=== PATIENT | male | born 1965 | race Caucasian/White ===

== ENCOUNTER → 2016-09-01 | Outpatient (CLI) | payer BC ==
[~2016-09-01] MED LIST: ALBUAER2 INH; CETI10TA84 PO; GLC500 PO; OMEP20CA59 PO; PRAV40TA2 PO; SNG10 PO; TPRSR/25 PO
--- NOTE | 2016-09-01 09:15 | DIAGNOSTIC IMAGING REPORT ---
CHEST 2 VIEWS ROUTINE CLINICAL HISTORY: R00.2 [id number] Shortness of [id number] COMPARISON STUDY: January 14, 2012 FINDINGS: The cardiac and mediastinal contours are normal. There is no evidence of focal pulmonary consolidation. There is no evidence of failure. No pleural effusions are visualized.[ IMPRESSION: No active disease in the chest. Electronically signed by: Tam Shah M.D. 09/01/2016 9:13 AM Dictated Date/Time: 09/01/2016 9:13 AM
[2016-09-01 09:31] LABS: HEMATOCRIT 42.1 % (42-52); MEAN CELL VOLUME 91.3 fL (80-100); MEAN CORPUSCULAR HEMOGLOBIN 32.3 pg (25-34); MEAN CORPUSCULAR HGB CONC 35.4 g/dl (32-36); MEAN PLATELET VOLUME 10.5 fL (7.4-10.4); PLATELET COUNT 157 K/uL (130-400); RED BLOOD COUNT 4.61 M/uL (4.7-6.1); WHITE BLOOD COUNT 4.83 K/uL (4.8-10.8)
[2016-09-01 09:44] LABS: ESTIMATED AVERAGE GLUCOSE 103 mg/dl; HA1C FLAG Normal (Normal)
[2016-09-01 10:04] LABS: BLOOD UREA NITROGEN 12 mg/dl (7-18); BUN/CREATININE RATIO 13.6 (10-20); CALCIUM 9.2 mg/dl (8.5-10.1); CARBON DIOXIDE 28 mmol/L (21-32); CHLORIDE 106 mmol/L (98-107); GLUCOSE 94 mg/dl (70-99); MAGNESIUM 2.4 mg/dl (1.8-2.4); POTASSIUM 4.5 mmol/L (3.5-5.1); SODIUM 141 mmol/L (136-145)
== END | disposition home or self-care (01) ==
LOC: C.RAD1850 08:55
PROVIDERS: ATTEND Family Medicine
DX: R00.2 Palpitations (principal); R06.02 Shortness of breath

== ENCOUNTER → 2016-12-02 | Outpatient (CLI) | payer BC ==
[2016-12-02 12:51] LABS: ESTIMATED AVERAGE GLUCOSE 105 mg/dl; HA1C FLAG Normal (Normal)
[2016-12-02 12:59] LABS: ALT/SGPT 30 U/L (12-78); AST/SGOT 18 U/L (15-37); BLOOD UREA NITROGEN 17 mg/dl (7-18); BUN/CREATININE RATIO 19.2 (10-20); CARBON DIOXIDE 26 mmol/L (21-32); CHLORIDE 107 mmol/L (98-107); CHOLESTEROL 194 mg/dl (0-200); CREATININE 0.86 mg/dl (0.60-1.40); GLUCOSE 99 mg/dl (70-99); POTASSIUM 4.2 mmol/L (3.5-5.1); SODIUM 140 mmol/L (136-145); TRIGLYCERIDES 114 mg/dl (0-150); VERY LOW DENSITY LIPOPROT CALC 23 mg/dl
[2016-12-02 13:04] LABS: CALCIUM 9.4 mg/dl (8.5-10.1); CHOLESTEROL/HDL RATIO 3.3; HDL CHOLESTEROL 58 mg/dl; LDL CHOLESTEROL CALCULATED 113 mg/dl
== END | disposition home or self-care (01) ==
LOC: C.LAB1850 10:52
PROVIDERS: ATTEND Internal Medicine
DX: K76.0 Fatty (change of) liver, not elsewhere classified (principal); R73.03 Prediabetes; E78.5 Hyperlipidemia, unspecified

== ENCOUNTER → 2017-06-02 | Outpatient (CLI) | payer BC ==
[2017-06-02 10:25] LABS: ALT/SGPT 44 U/L (12-78); AST/SGOT 30 U/L (15-37); BLOOD UREA NITROGEN 9 mg/dl (7-18); BUN/CREATININE RATIO 11.7 (10-20); CALCIUM 8.8 mg/dl (8.5-10.1); CARBON DIOXIDE 25 mmol/L (21-32); CHLORIDE 108 mmol/L (98-107); CHOLESTEROL 191 mg/dl (0-200); CREATININE 0.77 mg/dl (0.60-1.40); GLUCOSE 100 mg/dl (70-99); POTASSIUM 4.3 mmol/L (3.5-5.1); SODIUM 139 mmol/L (136-145)
[2017-06-02 10:28] LABS: HDL CHOLESTEROL 64 mg/dl; LDL CHOLESTEROL CALCULATED 108 mg/dl; TRIGLYCERIDES 93 mg/dl (0-150); VERY LOW DENSITY LIPOPROT CALC 19 mg/dl
[2017-06-02 11:24] LABS: ESTIMATED AVERAGE GLUCOSE 103 mg/dl; HA1C FLAG Normal (Normal)
== END | disposition home or self-care (01) ==
LOC: C.LAB1850 09:16
PROVIDERS: ATTEND Internal Medicine
DX: R73.03 Prediabetes (principal); E78.5 Hyperlipidemia, unspecified

== ENCOUNTER → 2017-06-30 | Outpatient (CLI) | payer BC | END | disposition home or self-care (01) | LOC: C.LAB1850 09:15 | PROVIDERS: ATTEND Internal Medicine | DX: R41.840 Attention and concentration deficit (principal) ==

== ENCOUNTER → 2017-10-27 | Day surgery (SDC) | payer BC ==
[2017-10-10 09:52] VITALS: BMI 35.0
[~2017-10-27] VITALS: Ht 177.8 cm; Wt 110.0 kg
[~2017-10-27] MED LIST changes: -ALBUAER2 INH; +CHOL20007 PO; +CYAN500T PO; -GLC500 PO; +LIDOCAINE HCL 2% 2 ML VIAL (20MG/ML) ONE; +METF-384 PO; +MULT-506 PO; -OMEP20CA59 PO; +PROPOFOL IV EMULSION 10 MG/ML 20 ML VIAL IV ONE; +SODIUM CHLORIDE 0.9% 500ML 500 ML IV ONE; -TPRSR/25 PO; +TPRSR25 PO; +VNTHFA/IN INH
[2017-10-27 08:57] VITALS: Ht 177.8 cm; Wt 110.0 kg
--- NOTE | 2017-10-27 09:22 | Endo History and Physical ---
History & Physical Date of Service: Oct 27, 2017. Chief Complaint: SCREENING FOR COLON CANCER Referring Physician: DR ARREOLA History of Present Illness 52 yo CM who presents for screening colonoscopy. Past Surgical History Hx Cardiac Surgery: No Hx Internal Defibrillator: No Hx Pacemaker: No Hx Abdominal Surgery: No Hx of Implantable Prosthesis: No Hx Post-Op Nausea and Vomiting: No Hx Cancer Surgery: No Hx Thoracic Surgery: No Hx Orthopedic: No Hx Urinary Tract Surgery: Yes (URETHRAL STRICTURE REPAIR X3) Family History Polyp, IBD Social History Smoking Status: Never Smoker Hx Substance Use: No Hx Alcohol Use: Yes (OCCASIONAL) Allergies Coded Allergies: Epinephrine (Unverified Allergy, Unknown, INCREASED HEART OVER 200 BPM, ) Penicillins (Verified Allergy, Unknown, UNSURE OF REACTION, 10/10/17) Current Medications Reported Home Medications Medications Dose Route/Sig Max Daily Dose Days Date Category Multivitamin (Multivitamins) Tab 1 Tab PO DAILY 10/10/17 Reported Vitamin B-12 (Cyanocobalamin) 500 Mcg Tab 500 Mcg PO DAILY 10/10/17 Reported Vitamin D3 (Cholecalciferol) 2,000 Unit Tab 1 Tab PO DAILY 10/10/17 Reported Ventolin Hfa (Albuterol) 200 Puffs/01029 Mcg Aers 2-4 Puffs INH Q6H PRN 10/10/17 Reported Glucophage (Metformin Hcl) 1,000 Mg Tab 1,000 Mg PO BID 10/10/17 Reported Metoprolol Succinate ER (Metoprolol Succinate) 25 Mg Tabcr 1 Tab PO HS 10/10/17 Reported Montelukast Sodium (Montelukast Sod) 10 Mg Tab 10 Mg PO HS 04/25/15 Reported Pravastatin Sodium 40 Mg Tab 40 Mg PO HS 04/25/15 Reported Zyrtec (Cetirizine HCl) 10 Mg Tab 10 Mg PO HS 04/25/15 Reported Vital Signs Weight (Kilograms): 110.00 Height (Feet): 5 Height (Inches): 10 Date Time Temp Pulse Resp B/P (MAP) Pulse Ox O2 Delivery O2 Flow Rate FiO2 10/27/17 08:56 36.4 72 20 133/92 (106) 94 Room Air Physical Exam General Appearance: WD/WN, no apparent distress Respiratory/Chest: Auscultation: breath sounds normal Cardiovascular: Heart Auscultation: RRR Abdomen: Bowel Sounds: normal Inspection & Palpation: soft, non-distended, no tenderness, guarding & rebound Assessment and Plan Assessment: 52 yo CM who presents for screening colonoscopy. Plan: Proceed with colonoscopy.
--- NOTE | 2017-10-27 10:26 | Discharge Instructions ---
Endoscopy Patient Instructions Date / Procedure(s) Performed Oct 27, 2017. Colonoscopy Allergy Information Coded Allergies: Epinephrine (Unverified Allergy, Unknown, INCREASED HEART OVER 200 BPM, ) Penicillins (Verified Allergy, Unknown, UNSURE OF REACTION, 10/10/17) Discharge Date / Findings Oct 27, 2017. Colon polyps Internal hemorrhoids Medication Instructions Stopped Medication(s): GLUCOPHAGE LAST DOSE 10/24/17 OK to resume all medications today as prescribed Reported Home Medications Medications Dose Route/Sig Max Daily Dose Days Date Category Multivitamin (Multivitamins) Tab 1 Tab PO DAILY 10/10/17 Reported Vitamin B-12 (Cyanocobalamin) 500 Mcg Tab 500 Mcg PO DAILY 10/10/17 Reported Vitamin D3 (Cholecalciferol) 2,000 Unit Tab 1 Tab PO DAILY 10/10/17 Reported Ventolin Hfa (Albuterol) 200 Puffs/29628 Mcg Aers 2-4 Puffs INH Q6H PRN 10/10/17 Reported Glucophage (Metformin Hcl) 1,000 Mg Tab 1,000 Mg PO BID 10/10/17 Reported Metoprolol Succinate ER (Metoprolol Succinate) 25 Mg Tabcr 1 Tab PO HS 10/10/17 Reported Montelukast Sodium (Montelukast Sod) 10 Mg Tab 10 Mg PO HS 04/25/15 Reported Pravastatin Sodium 40 Mg Tab 40 Mg PO HS 04/25/15 Reported Zyrtec (Cetirizine HCl) 10 Mg Tab 10 Mg PO HS 04/25/15 Reported Provider Instructions Activity Restrictions - No exercising or heavy lifting for 24 hours. - Do not drink alcohol the day of the procedure. - Do not drive a car or operate machinery until the day after the procedure. - Do not make any important decisions or sign important papers in 24 hours after the procedure. Following Day: - Return to full activity which may include returning to work/school. Diet Start your diet with liquids and light foods (jello, soup, juice, toast). Then eat your usual diet if not nauseated. Treatment For Common After Affects For mild abdominal pain, bloating, or excessive gas: - Rest - Eat lightly - Lie on right side Follow-Up Information Follow-up with DR ARREOLA as scheduled Anesthesia Information What You Should Know You have had a procedure that required some medicine to reduce anxiety and discomfort. This treatment is called moderate sedation. After receiving the treatment, you may be sleepy, but you will be able to breathe on your own. The effects of the treatment may last for several hours. Follow these instructions along with Activity/Diet recommendations noted above: * Do NOT do anything where dizziness or clumsiness would be dangerous. * Rest quietly at home today, then you can be up and about tomorrow. * Have a responsible person stay with you the rest of today. * You may have had an I.V. today. If so, you may take the dressing off later today. Recommendations Call your doctor if: * Trouble breathing * Continuous vomiting for more than 24 hours * Temperature above 101 degrees * Severe abdominal pain or bloating * Pain not relieved by pain medicine ordered * There is increased drainage or redness from any incision * A large amount of rectal bleeding greater than 2-3 tablespoons. (If you had a polyp/s removed or have hemorrhoids, a small amount of blood - from the rectum is to be expected.) * You have any unanswered questions or concerns. IN THE EVENT OF A SERIOUS EMERGENCY, GO TO THE NEAREST EMERGENCY ROOM Your discharge instructions were prepared by provider Mendez Marcum. Patient Instructions Signature Page Danny Weems Patient (or Guardian) Signature/Date: I have read and understand the instructions given to me by my caregivers. Caregiver/RN/Doctor Signature/Date: The above-named patient and/or guardian has received patient instructions on this date. + Original Patient Signature Page (only) stays with chart. Please make copy for patient.
[2017-10-27 10:53] VITALS: BP 134/18; PULSE 64; O2SAT 97
--- NOTE | 2017-10-27 11:33 | Anesthesiology Progress Note ---
Anesthesia Post Op Note Date & Time Oct 27, 2017 at 11:33 Vital Signs Pain Intensity: 0 Vital Signs Past 12 Hours Date Time Temp Pulse Resp B/P (MAP) Pulse Ox O2 Delivery O2 Flow Rate FiO2 10/27/17 10:53 64 18 134/18 (56) 97 Room Air 10/27/17 10:38 77 18 136/72 (93) 96 Room Air 10/27/17 10:23 87 16 121/76 (91) 96 Room Air 10/27/17 08:56 36.4 72 20 133/92 (106) 94 Room Air Notes Mental Status: alert / awake / arousable, participated in evaluation Pt Amnestic to Procedure: Yes Nausea / Vomiting: adequately controlled Pain: adequately controlled Airway Patency, RR, SpO2: stable & adequate BP & HR: stable & adequate Hydration State: stable & adequate Anesthetic Complications: no major complications apparent
--- NOTE | 2017-10-31 08:48 | GI REPORT ---
Procedure Date: 10/27/2017 9:42 AM Procedure: Colonoscopy Indications: Screening for colorectal malignant neoplasm Medicines: Monitored Anesthesia Care Complications: No immediate complications. Estimated Blood Loss: Estimated blood loss: none. Procedure: Pre-Anesthesia Assessment: - Prior to the procedure, a History and Physical was performed, and patient medications and allergies were reviewed. The patient's tolerance of previous anesthesia was also reviewed. The risks and benefits of the procedure and the sedation options and risks were discussed with the patient. All questions were answered, and informed consent was obtained. Prior Anticoagulants: The patient has taken no previous anticoagulant or antiplatelet agents. ASA Grade Assessment: II - A patient with mild systemic disease. After reviewing the risks and benefits, the patient was deemed in satisfactory condition to undergo the procedure. After I obtained informed consent, the scope was passed under direct vision. Throughout the procedure, the patient's blood pressure, pulse, and oxygen saturations were monitored continuously. The scope was introduced through the anus and advanced to the terminal ileum. The colonoscopy was performed without difficulty. The patient tolerated the procedure well. The quality of the bowel preparation was good. The terminal ileum, ileocecal valve, appendiceal orifice, and rectum were photographed. Findings: The perianal and digital rectal examinations were normal. Two sessile polyps were found in the sigmoid colon and ascending colon. The polyps were 5 to 8 mm in size. These polyps were removed with a hot snare. Resection and retrieval were complete. Non-bleeding internal hemorrhoids were found during retroflexion. The hemorrhoids were small. Impression: - Two 5 to 8 mm polyps in the sigmoid colon and in the ascending colon, removed with a hot snare. Resected and retrieved. - Non-bleeding internal hemorrhoids. Recommendation: - Resume previous diet. - Continue present medications. - Repeat colonoscopy for surveillance based on pathology results. - Return to primary care physician as previously scheduled. Mendez Marcum DO 10/27/2017 10:34:06 AM This report has been signed electronically. Note Initiated On: 10/27/2017 9:42 AM I attest to the content of the Intraoperative Record and orders documented therein, exceptions below
== END | disposition home or self-care (01) ==
LOC: C.GI 08:40
PROVIDERS: ATTEND Internal Medicine
DX: Z12.11 Encounter for screening for malignant neoplasm of colon (principal); D12.2 Benign neoplasm of ascending colon; D12.5 Benign neoplasm of sigmoid colon; K64.8 Other hemorrhoids; J45.909 Unspecified asthma, uncomplicated; G47.33 Obstructive sleep apnea (adult) (pediatric); E66.9 Obesity, unspecified; Z68.35 Body mass index [BMI] 35.0-35.9, adult; Z99.89 Dependence on other enabling machines and devices; Z88.0 Allergy status to penicillin

== ENCOUNTER 2022-06-27 11:09 | Inpatient (IN) ==
[2022-06-27] MEDS ORDERED: ONDANSETRON INJ 2 MG/ML 2 ML VIAL IV STA (12:19)
[2022-06-27] MEDS ORDERED: SODIUM CHLORIDE 0.9% 1000ML 1,000 ML IV STA (12:19)
[2022-06-27] MEDS: MoRPHine SULFATE 4 MG/ML 1 ML CARP\\VIAL IV PRN ×5 (12:24→15:23)
--- NOTE | 2022-06-27 12:25 | Emergency Department Note ---
Impression & Plan Hydronephrosis with ureteral calculus, Renal colic on right side ED Provider Note NAME: PAGE COLÓN AGE: 56 SEX: M : 1965 ARRIVES VIA: Walk-In INFORMANT: Patient, ED PROVIDER(S): Cheng Cronin DO CHIEF COMPLAINT: Flank pain HPI: The patient is a 56-year-old male who presented to the emergency department for an evaluation of flank pain. The patient describes right-sided flank pain which began earlier today. It now comes around to his right groin. He has no history of kidney stone but he states he is very uncomfortable and is walking around the room. The patient states his pain is moderate to severe. It does somewhat worsen with palpation over the lower abdomen as well as the right groin. He denies having any hernia. He did not see his family doctor for any symptoms. He has had severe nausea accompanied with this. The patient denies having any chest pain or difficulty breathing. He did not take any medication prior to coming to the emergency department. ROS: See above HPI for pertinent positives & negatives. A total of 10 systems reviewed and were otherwise negative. PAST MEDICAL HISTORY: See Below PAST SURGICAL HISTORY: See Below FAMILY HISTORY: See Below SOCIAL HISTORY: See Below HOME MEDICATIONS: See Below ALLERGIES: See Below VITALS: See Below PHYSICAL EXAMINATION: GENERAL: The patient is awake and alert. The patient is very anxious and appears to be uncomfortable. EYES: The conjunctivae are clear. The pupils are round and reactive. EARS, NOSE, MOUTH AND THROAT: The nose is without any evidence of any deformity. NECK: The neck is nontender and supple. RESPIRATORY: Normal respiratory effort is noted there is no evidence of wheezing rhonchi or rales CARDIOVASCULAR: Regular rate and rhythm noted there no murmurs rubs or gallops normal S1 normal S2. GASTROINTESTINAL: The abdomen is soft. The abdomen is mildly distended. There is right lower quadrant tenderness to palpation. BACK: No midline tenderness was noted. Right CVA tenderness was noted to percussion. MUSCULOSKELETAL/EXTREMITIES: There is no evidence of gross deformity full range of motion is noted in the hips and shoulders. SKIN: There is no obvious evidence of any rash. There are no petechiae, pallor or cyanosis noted. NEUROLOGIC: Patient is awake alert and oriented x3 strength is symmetric patellar reflexes are 2+ bilaterally MEDICAL DECISION MAKING: The patient is a 56-year-old male who presented to the emergency department for an evaluation of right renal colic. The patient was in significant pain when I initially evaluated him. His history and physical exam appear to be consistent with ureteral calculus and CT did show a proximal ureteral calculus. Given the amount of pain the patient was in especially after multiple doses of IV pain medication I discussed his condition with the on-call [facility] hospitalist. They have agreed to evaluate the patient in the emergency department for further management and disposition. I did discuss the patient's laboratory and radiographic studies with him. Triage Nursing notes reviewed. Prior medical records reviewed Vital Signs: reviewed and remarkable for elevated blood pressure and bradycardia. Differential diagnosis: Renal colic, UTI, appendicitis, diverticulitis, mesenteric ischemia, aortic pathology, infections, inflammatory bowel disease, PUD, biliary pathology, as well as other pathologies. ER treatment provided: See below Diagnostics interpreted by me: ECG: none Cardiac Monitoring: An order was placed for continuous cardiac monitoring. The monitor shows a rate of 54 bpm with sinus bradycardia. Laboratory studies: As stated above and show below. Imaging studies: See below Consultation(s): none Past Med/Surg History Medical History (Updated 06/27/22 @ 19:20 by Cheng Cronin DO) Dyslipidemia Prediabetes Tubular adenoma of colon Surgical History History of uvulectomy S/P cystoscopy Family History Father Prostate cancer Acute Crohn's disease Crohn's disease Son Asthma Mother Bipolar disorder Grandfather (Maternal) Coronary heart disease Grandmother (Maternal) Pancreatic cancer Denies family history of Ovarian cancer Myocardial infarction Breast cancer Colorectal cancer Social History Smoking Status: Never smoker Hx Alcohol Use: Yes Hx Substance Use: No Preferred Language: Cameroonian Visual Impairment: No Limitations Hearing Ability: Normal marital status: Current Living Situation: Spouse current occupational status: employed current occupation: police lieutenant Feels Safe at Home: Yes Childhood Exposure to Second-Hand Smoke: No Dental Care, Regularly: Yes Physical Activity Frequency: 3-4 Times per Week Seatbelt Use: always Sunscreen Use: Yes Allergies Allergies Allergy/AdvReac Type Severity Reaction Status Date / Time epinephrine Allergy Unknown INCREASED Verified 06/27/22 15:52 HEART OVER 200 BPM Penicillins Allergy Unknown UNSURE OF Verified 06/27/22 15:52 REACTION Home Meds Previous Rx's Medication Instructions Recorded albuterol sulfate 90 mcg/actuation See Rx Instructions inhalation QID 05/14/21 aerosol inhaler (Ventolin HFA) PRN shortness of breath or wheezing #8.5 grams pravastatin 40 mg tablet 40 mg PO DAILY #90 tabs 09/27/21 metformin 1,000 mg tablet 1,000 mg PO BID #180 tabs 11/01/21 metoprolol succinate 25 mg 25 mg PO DAILY #90 tabs 11/01/21 tablet,extended release 24 hr montelukast 10 mg tablet 10 mg PO QPM #90 tabs 11/01/21 Results & Data (ED) Vital Signs Vital Signs - 24 hr 06/27/22 11:14 06/27/22 12:44 06/27/22 12:46 Temperature 36.8 C Temperature Source Temporal Artery Scan Pulse Rate 61 Pulse Rate [Finger] 61 Pulse Rhythm [Finger] Respiratory Rate 30 H 18 Respiratory Effort / Characteristics Non-Labored Spontaneous Respiratory Depth Normal Respiratory Pattern Regular Blood Pressure 161/81 H Blood Pressure [Left Arm] 154/84 H Blood Pressure Mean 107 Blood Pressure Mean [Left Arm] 107 Blood Pressure Position Sitting Pulse Oximetry 95 97 97 Oxygen Delivery Method Room Air Room Air Sepsis Recent Fever Within 48 Hours No Sepsis New/Unexplained Change in Mental Status No Sepsis Action Taken by Nursing No Action Required 06/27/22 13:31 06/27/22 15:39 06/27/22 17:54 Temperature Temperature Source Pulse Rate Pulse Rate [Finger] 49 L 50 L 54 L Pulse Rhythm [Finger] Regular Respiratory Rate 18 18 18 Respiratory Effort / Characteristics Respiratory Depth Respiratory Pattern Blood Pressure Blood Pressure [Left Arm] 147/87 H Blood Pressure Mean Blood Pressure Mean [Left Arm] 107 Blood Pressure Position Pulse Oximetry 98 92 96 Oxygen Delivery Method Room Air Room Air Room Air Sepsis Recent Fever Within 48 Hours Sepsis New/Unexplained Change in Mental Status Sepsis Action Taken by Assisted Medications Current Medication List: was personally reviewed by me Laboratory Data Attestation: I reviewed the patient's lab results. Result diagrams: 06/27/22 11:20 06/27/22 11:20 Lab Results 11/06/27/22 06/27/22 Range/Units 11:20 11:20 15:10 WBC 6.86 (4.8-10.8) K/ul RBC 4.60 L (4.63-6.08) M/uL Hgb 14.6 (14.0-18.0) g/dl Hct 42.4 (40.1-51.0) % MCV 92.2 (80.0-100.0) fL MCH 31.7 (25.0-34.0) pg MCHC 34.4 (32.0-36.0) g/dL RDW Std Deviation 42.5 (36.4-46.3) fL RDW Coeff of Ramona 12.6 (11.5-14.5) % Plt Count 193 (130-400) K/uL MPV 10.9 (9.4-12.4) fL Immature Gran % (Auto) 0.4 % Neut % (Auto) 44.0 % Lymph % (Auto) 36.7 % Martin % (Auto) 12.8 % Eos % (Auto) 5.1 % Baso % (Auto) 1.0 % Neut # (Auto) 3.01 (1.4-6.5) K/uL Lymph # (Auto) 2.52 (1.2-3.4) K/uL Martin # (Auto) 0.88 H (0.24-0.82) K/uL Eos # (Auto) 0.35 (0-0.50) K/uL Baso # (Auto) 0.07 (0-0.2) K/uL Immature Gran # (Auto) 0.03 H (0.00-0.02) K/uL Sodium 138 (136-145) mmol/L Potassium 3.8 (3.5-5.1) mmol/L Chloride 108 H (98-107) mmol/L Carbon Dioxide 20 L (21-32) mmol/L Anion Gap 10 (3-11) BUN 12 (6-23) mg/dl Creatinine 0.99 (0.6-1.4) mg/dl Est Cr Clr Drug Dosing 106.5 ml/min Est GFR ( Amer) 99.7 ml/min Est GFR (Non-Af Amer) 86.0 ml/min BUN/Creatinine Ratio 12.1 (10-20) Glucose 115 H (70-99(Fasting)) mg/dl Calcium 9.2 (8.5-10.1) mg/dl Total Bilirubin 0.6 (0.2-1.0) mg/dl AST 16 (13-39) U/L ALT 15 (7-52) U/L Alkaline Phosphatase 53 (34-104) U/L Total Protein 6.7 (6.0-8.3) gm/dl Albumin 4.2 (3.4-5.0) gm/dl Globulin 2.5 (2.5-4.0) gm/dl Albumin/Globulin Ratio 1.7 (0.9-2) Lipase 141 H (11-82) U/L Urine Color Yellow Urine Appearance Clear (Clear) Urine pH 5.0 (4.5-7.5) Ur Specific [place] 1.020 (1.000-1.030) Urine Protein Negative (Negative) Urine Glucose (UA) Negative (Negative) Urine Ketones Trace H (Negative) Urine Blood 3+ H (Negative) Urine Nitrite Negative (Negative) Urine Bilirubin Negative (Negative) Urine Urobilinogen Negative (Negative) Ur Leukocyte Esterase Negative (Negative) Urine WBC (Auto) 1-5 (0-5) /hpf Urine RBC (Auto) 10-30 H (0-4) /hpf U Hyaline Cast (Auto) 1-5 (0-5) /lpf U Epithel Cells (Auto) 10-20 H (0-5) /lpf Urine Bacteria (Auto) Negative (Negative) SARS-CoV-2, RNA, NAAT (NEGATIVE) 06/27/22 Range/Units Unknown WBC (4.8-10.8) K/ul RBC (4.63-6.08) M/uL Hgb (14.0-18.0) g/dl Hct (40.1-51.0) % MCV (80.0-100.0) fL MCH (25.0-34.0) pg MCHC (32.0-36.0) g/dL RDW Std Deviation (36.4-46.3) fL RDW Coeff of Ramona (11.5-14.5) % Plt Count (130-400) K/uL MPV (9.4-12.4) fL Immature Gran % (Auto) % Neut % (Auto) % Lymph % (Auto) % Martin % (Auto) % Eos % (Auto) % Baso % (Auto) % Neut # (Auto) (1.4-6.5) K/uL Lymph # (Auto) (1.2-3.4) K/uL Martin # (Auto) (0.24-0.82) K/uL Eos # (Auto) (0-0.50) K/uL Baso # (Auto) (0-0.2) K/uL Immature Gran # (Auto) (0.00-0.02) K/uL Sodium (136-145) mmol/L Potassium (3.5-5.1) mmol/L Chloride (98-107) mmol/L Carbon Dioxide (21-32) mmol/L Anion Gap (3-11) BUN (6-23) mg/dl Creatinine (0.6-1.4) mg/dl Est Cr Clr Drug Dosing ml/min Est GFR ( Amer) ml/min Est GFR (Non-Af Amer) ml/min BUN/Creatinine Ratio (10-20) Glucose (70-99(Fasting)) mg/dl Calcium (8.5-10.1) mg/dl Total Bilirubin (0.2-1.0) mg/dl AST (13-39) U/L ALT (7-52) U/L Alkaline Phosphatase (34-104) U/L Total Protein (6.0-8.3) gm/dl Albumin (3.4-5.0) gm/dl Globulin (2.5-4.0) gm/dl Albumin/Globulin Ratio (0.9-2) Lipase (11-82) U/L Urine Color Urine Appearance (Clear) Urine pH (4.5-7.5) Ur Specific [place] (1.000-1.030) Urine Protein (Negative) Urine Glucose (UA) (Negative) Urine Ketones (Negative) Urine Blood (Negative) Urine Nitrite (Negative) Urine Bilirubin (Negative) Urine Urobilinogen (Negative) Ur Leukocyte Esterase (Negative) Urine WBC (Auto) (0-5) /hpf Urine RBC (Auto) (0-4) /hpf U Hyaline Cast (Auto) (0-5) /lpf U Epithel Cells (Auto) (0-5) /lpf Urine Bacteria (Auto) (Negative) SARS-CoV-2, RNA, NAAT NEGATIVE (NEGATIVE) Administered Medications Morphine Sulfate (Morphine Sulfate 4 Mg/Ml 1 Ml Carp\Vial) 4 mg IV Q15M PRN PRN Reason: Pain Stop: 07/11/22 12:18 Last Admin: 06/27/22 15:23 Dose: 4 mg Documented By: Admin: 06/27/22 13:29 Dose: 4 mg Documented By: Admin: 06/27/22 12:55 Dose: 4 mg Documented By: Admin: 06/27/22 12:43 Dose: 4 mg Documented By: Admin: 06/27/22 12:24 Dose: 4 mg Documented By: PALMA Discontinued Medications Hydromorphone HCl (Hydromorphone Inj 1 Mg/Ml Syringe) 1 mg IV NOW STA Stop: 06/27/22 16:09 Last Admin: 06/27/22 16:18 Dose: 1 mg Documented By: LALA Sodium Chloride (Nss 1000ml) 1,000 mls @ 999 mls/hr IV .Q1H1M STA Stop: 06/27/22 13:19 Last Infusion: 06/27/22 13:05 Dose: 0 mls/hr Documented By: Admin: 06/27/22 12:24 Dose: 999 mls/hr Documented By: PALMA Ketorolac Tromethamine (Ketorolac Tromethamine 15 Mg/Ml Vial) 10 mg IV NOW ONE Stop: 06/27/22 16:53 Last Admin: 06/27/22 17:06 Dose: 10 mg Documented By: LALA Ondansetron HCl (Ondansetron Inj 2 Mg/Ml 2 Ml Vial) 4 mg IV NOW STA Stop: 06/27/22 12:20 Last Admin: 06/27/22 12:24 Dose: 4 mg Documented By: PALMA Ondansetron HCl (Ondansetron Inj 2 Mg/Ml 2 Ml Vial) Confirm Administered Dose 4 mg .ROUTE .STK-MED ONE Stop: 06/27/22 15:21 Last Admin: 06/27/22 15:22 Dose: 4 mg Documented By: LALA Tamsulosin HCl (Tamsulosin Hcl 0.4 Mg Cap) 0.4 mg PO NOW ONE Stop: 06/27/22 16:53 Last Admin: 06/27/22 17:06 Dose: 0.4 mg Documented By: KV Imaging Data Radiologist's Impression: Abdomen/Pelvis CT 06/27/22 12:[address] WITHOUT CONTRAST CT DOSE: 723.91 mGy.cm HISTORY: right flank pain TECHNIQUE: Multiaxial CT images of the abdomen and pelvis were performed without contrast. A dose lowering technique was utilized adhering to the principles of ALARA. COMPARISON STUDY: None. FINDINGS: Mild dependent changes seen within the lung bases. No pneumoperitoneum. No pneumatosis. No suspicious lytic or blastic osseous lesions. Small bilateral hydroceles are noted. Mild bladder wall thickening. No bowel wall thickening or obstruction. Normal appendix. No retroperitoneal lymphadenopathy. Normal caliber abdominal aorta. Mild hepatic steatosis. The unenhanced gallbladder, pancreas, spleen, and adrenal glands are unremarkable. Normal left kidney. There is a 4 mm obstructing stone within the right ureteropelvic junction resulting in mild right hydronephrosis. There is associated mild right perinephric fat stranding. IMPRESSION: 1. A 4 mm obstructing stone within the right ureteropelvic junction resulting in mild right hydronephrosis. 2. No bowel wall thickening or obstruction. 3. Normal appendix. 4. Hepatic steatosis. 5. Mild bladder wall thickening. ACT 112: Negative or not required by law. Electronically signed by: Joel Osorio M.D. 06/27/2022 1:24 PM Discharge Plan Visit Data Chief Complaint: Flank Pain Stated Complaint: R FLANK PAIN ED Provider: Cheng Cronin Discharge Problem: Hydronephrosis with ureteral calculus, Renal colic on right side Patient Disposition: Being Evaluated by Hospitalist Forms Stand Alone Forms: My [facility] Prescriptions Prescriptions: No Action pravastatin 40 mg tablet 40 mg PO DAILY Qty: 90 3RF metoprolol succinate 25 mg tablet extended release 24 hr 25 mg PO DAILY Qty: 90 3RF montelukast 10 mg tablet 10 mg PO QPM Qty: 90 3RF metformin 1,000 mg tablet 1,000 mg PO BID Qty: 180 3RF albuterol sulfate [Ventolin HFA] 90 mcg/actuation HFA aerosol inhaler See Rx Instructions inhalation QID PRN (Reason: shortness of breath or wheezing) Qty: 8.5 2RF Rx Instructions: 1-2 puffs every 4-5 hours inhalation four times daily PRN; Referrals Referrals: Pro,Cheng Norton MD [Primary Care Provider] -
--- NOTE | 2022-06-27 13:25 | CT Scan Report ---
ABDOMEN AND PELVIS CT WITHOUT CONTRAST CT DOSE: 723.91 mGy.cm HISTORY: right flank pain TECHNIQUE: Multiaxial CT images of the abdomen and pelvis were performed without contrast. A dose lo wering technique was utilized adhering to the principles of ALARA. COMPARISON STUDY: None. FINDINGS: Mild dependent changes seen within the lung bases. No pneumoperitoneum. No pneumatosis. No suspicious lytic or blastic osseous lesions. Small bilateral hydroceles are noted. Mild bladder wall thickening. No bowel wall thickening or obstruction. Normal appendix. No retroperitoneal lymphadenopa thy. Normal caliber abdominal aorta. Mild hepatic steatosis. The unenhanced gallbladder, pancreas, sp anne, and adrenal glands are unremarkable. Normal left kidney. There is a 4 mm obstructing stone with in the right ureteropelvic junction resulting in mild right hydronephrosis. There is associated mild right perinephric fat stranding. IMPRESSION: 1. A 4 mm obstructing stone within the right ureteropelvic junction resulting in mild right hydroneph rosis. 2. No bowel wall thickening or obstruction. 3. Normal appendix. 4. Hepatic steatosis. 5. Mild bladder wall thickening. ACT 112: Negative or not required by law. Electronically signed by: Joel Osorio M.D. 06/27/2022 1:24 PM
[2022-06-27 14:56] LABS: Basophils # (auto) 0.07 K/uL (0-0.2); Eosinophils # (auto) 0.35 K/uL (0-0.50); Eosinophils % (auto) 5.1 %; Hematocrit (blood only) 42.4 % (40.1-51.0); Hemoglobin 14.6 g/dl (14.0-18.0); Immature Granulocytes # (auto) 0.03 K/uL (0.00-0.02); Immature Granulocytes % (auto) 0.4 %; Lymphocytes # (auto) 2.52 K/uL (1.2-3.4); Lymphocytes % (auto) 36.7 %; Mean Corpuscular Hemoglobin 31.7 pg (25.0-34.0); Mean Corpuscular Hgb Conc 34.4 g/dL (32.0-36.0); Mean Corpuscular Volume 92.2 fL (80.0-100.0); Mean Platelet Volume 10.9 fL (9.4-12.4); Monocytes # (auto) 0.88 K/uL (0.24-0.82); Monocytes % (auto) 12.8 %; Neutrophils # (auto) 3.01 K/uL (1.4-6.5); Platelet Count 193 K/uL (130-400); RDW Coefficient of Variation 12.6 % (11.5-14.5); RDW Standard Deviation 42.5 fL (36.4-46.3); White Blood Count 6.86 K/ul (4.8-10.8)
[2022-06-27 15:10] LABS: Albumin Globulin Ratio 1.7 (0.9-2); Albumin Level 4.2 gm/dl (3.4-5.0); BUN Creatinine Ratio 12.1 (10-20); Bilirubin,Total 0.6 mg/dl (0.2-1.0); Calcium 9.2 mg/dl (8.5-10.1); Creatinine Clr Calc Pharmacy 106.5 ml/min; Est GFR (African American) 99.7 ml/min; Globulin 2.5 gm/dl (2.5-4.0); Potassium 3.8 mmol/L (3.5-5.1); Total Protein 6.7 gm/dl (6.0-8.3)
[2022-06-27] MEDS ORDERED: ONDANSETRON INJ 2 MG/ML 2 ML VIAL ONE (15:20)
[2022-06-27 15:38] LABS: Appearance Urine Clear (Clear); Bacteria Urine Automated Negative (Negative); Bilirubin Urine Negative (Negative); Blood Urine 3+ (Negative); Color Urine Yellow; Glucose Urine UA Negative (Negative); Ketones Urine Trace (Negative); Leukocyte Esterase Urine Negative (Negative); Nitrite Urine Negative (Negative); Protein Urine Negative (Negative); Urobilinogen Urine Negative (Negative)
[2022-06-27] MEDS ORDERED: HYDROmorphone INJ 1 MG/ML SYRINGE IV STA (16:08)
--- NOTE | 2022-06-27 16:37 | History & Physical Report ---
Date of Service June 27, 2022 Assessment & Plan (1) Obstruction of right ureteropelvic junction (UPJ): Plan: R UPJ Stone - CT-A/P:1. A 4 mm obstructing stone within the right ureteropelvic junction resulting in mild right hydronephrosis. 2. No bowel wall thickening or obstruction. 3. Normal appendix. 4. Hepatic steatosis.5. Mild bladder wall thickening. - Cr normal at bl, <1 on admit - 4mm stone with hydro Patient has not passed stone and had an adequate pain control with expulsive/medical therapy and pain control. Discussed with urology, not able cystoscopy/stents placed and discharged from ER at this time, will admit for observation - APAP/toradol 10/scaled analgesia/flomax - NPO - Fluids - Urology consulted. Of note patient has had urethral stricture with difficult catheterization in the past (2) Obstructive sleep apnea: Plan: CPAP nightly (3) Dyslipidemia: Plan: Continue pravastatin (4) Prediabetes: Plan: Insulin SSI, hold metformin (5) Asthma: Plan: Continue montelukast, albuterol as needed, no wheezing on admission (6) Esophageal reflux: Plan: H2 as needed Plan DVT prophylaxis: Low risk, SCDs Diet: N.p.o. pending surgical eval, clears until midnight if OR unavailable CODE STATUS: Full code Disposition: Medical surgical History of Present Illness Primary Care Provider: Cheng Tracy MD Danny is a 56-year-old male with a past medical history of dyslipidemia, prediabetes, asthma, reflux who presents with intractable pain and is found to haveA 4 mm obstructing stone at the right UPJ with mild right hydro. Pain was not improved with saline, Zofran, morphine, hydromorphone, and has not improved with Flomax. Patient was recommended for admission for pain control, urologic intervention, and management of hydro. Creatinine is not elevated, admitting creatinine is 0.99 and baseline creatinine is normal. R flank pain started ~9am, then jumped to 10/10 and moved from R flank into the R low pelvis. No fevers, chills, sweats +diaphoresis, +Vomiting from pain, nonbloody/nonbilious emesis No chest pain. no sob, no breathing problems NO blood in urine to his knowledge. Has some dysuria at baseline due to a high s chool traumatic stricture x4 interventions/surgeries for scar tissue 2x performed in [place] in the , and 2x with [facility]. Medical History: Reviewed Medications: Reviewed Surgical History: Reviewed Allergies: Reviewed. PCN childhood w/ hallucinations no rash. Social History: No tobacco product use, rare social alcohol use, no MM. Code Status: Full Code Allergies Allergy/AdvReac Type Severity Reaction Status Date / Time epinephrine Allergy Unknown INCREASED Verified 06/27/22 15:52 HEART OVER 200 BPM Penicillins Allergy Unknown UNSURE OF Verified 06/27/22 15:52 REACTION Home Medications Medication Instructions Recorded Confirmed Type albuterol sulfate 90 mcg/actuation See Rx Instructions inhalation QID 05/14/21 06/27/22 Rx aerosol inhaler (Ventolin HFA) PRN shortness of breath or wheezing #8.5 grams pravastatin 40 mg tablet 40 mg PO DAILY #90 tabs 09/27/21 06/27/22 Rx metformin 1,000 mg tablet 1,000 mg PO BID #180 tabs 11/01/21 06/27/22 Rx metoprolol succinate 25 mg 25 mg PO DAILY #90 tabs 11/01/21 06/27/22 Rx tablet,extended release 24 hr montelukast 10 mg tablet 10 mg PO QPM #90 tabs 11/01/21 06/27/22 Rx Past Med/Surg History Medical History Dyslipidemia Prediabetes Tubular adenoma of colon Surgical History History of uvulectomy S/P cystoscopy Family History Father Prostate cancer Acute Crohn's disease Crohn's disease Son Asthma Mother Bipolar disorder Grandfather (Maternal) Coronary heart disease Grandmother (Maternal) Pancreatic cancer Denies family history of Ovarian cancer Myocardial infarction Breast cancer Colorectal cancer Social History Smoking Status: Never smoker Hx Alcohol Use: Yes Hx Substance Use: No Preferred Language: Vietnamese Visual Impairment: No Limitations Hearing Ability: Normal marital status: Current Living Situation: Spouse current occupational status: employed current occupation: policeman Feels Safe at Home: Yes Childhood Exposure to Second-Hand Smoke: No Dental Care, Regularly: Yes Physical Activity Frequency: 3-4 Times per Week Seatbelt Use: always Sunscreen Use: Yes Review of Systems Review of Systems: All systems reviewed & are unremarkable except as noted in HPI & below Physical Exam Physical Exam: General: A&Ox3. NAD. Cooperative. HEENT: Atraumatic, normocephalic. Pulm: CTAB A&P. -wheezes, -rales, -rhonchi. Symmetrical chest rise. No increased work of breathing. No respiratory distress. Cardiac: RRR, -mrg. Radial pulses intact and symmetrical. Abdominal: +CVA tenderness R, Mild RLQ ab pain without rebound. Otherwise soft, NT. BS intact Ext; Warm, dry. Results & Data Results & Data ([facility]) Vital Signs (Past 12 Hours) Vital Signs Temp Pulse Pulse Resp BP BP Pulse Ox 06/27/22 15:39 50 L 18 92 06/27/22 13:31 49 L 18 147/87 H 98 06/27/22 12:46 97 06/27/22 12:44 61 18 154/84 H 97 06/27/22 11:14 36.8 C 61 30 H 161/81 H 95 O2 Del Method 06/27/22 15:39 Room Air 06/27/22 13:31 Room Air 06/27/22 12:46 06/27/22 12:44 Room Air 06/27/22 11:14 Room Air PG Care Time/CCT Total # of Minutes Spent Total Time Spent with Patient: Total time spent is greater than 50% in coordination of care (as documented) at patient's floor/unit and/or counseling patient: Coding Level of Care Code INT OBSERVATION CARE 50M LVL 2 Diagnoses Obstruction of right ureteropelvic junction (UPJ) N13.5 Obstructive sleep apnea G47.33 Dyslipidemia E78.5 Prediabetes R73.03 Asthma J45.909 Esophageal reflux K21.9
[2022-06-27] MEDS ORDERED: KETOROLAC TROMETHAMINE 15 MG/ML VIAL IV ONE (16:52)
[2022-06-27] MEDS ORDERED: TAMSULOSIN HCL 0.4 MG CAP PO ONE ×2 (16:52→21:15)
[2022-06-27] MEDS ORDERED: ALBUTEROL HFA 8 GM INHALER INH PRN (21:15)
[2022-06-27] MEDS ORDERED: GLUCOSE 10 TAB/TUBE PO PRN (21:15)
[2022-06-27] MEDS ORDERED: INSULIN ASPART PER UNIT SC SCH (21:15)
[2022-06-27] MEDS ORDERED: GLUCAGON FOR INJ 1 MG VIAL SQ PRN (21:15)
[2022-06-27] MEDS ORDERED: HYDROmorphone INJ 1 MG/ML SYRINGE IV PRN (21:15)
[2022-06-27] MEDS ORDERED: ONDANSETRON INJ 2 MG/ML 2 ML VIAL IV PRN (21:15)
[2022-06-27] MEDS ORDERED: GLUCOSE 40% GEL 15 GM TUBE PO PRN (21:15)
[2022-06-27] MEDS ORDERED: CARBOHYDRATES FOR HYPOGLYCEMIA PO PRN (21:15)
[2022-06-27] MEDS ORDERED: ACETAMINOPHEN 325 MG TAB PO PRN (21:15)
[2022-06-27] MEDS ORDERED: MONTELUKAST SODIUM 10 MG TABLET PO SCH (21:15)
[2022-06-27] MEDS ORDERED: HYDROmorphone INJ 0.5 MG/0.5 ML SYR IV PRN (21:15)
[2022-06-27] MEDS ORDERED: DEXTROSE 50% 50 ML SYRINGE IV PRN (21:15)
[2022-06-27] MEDS: LACTATED RINGER'S 1,000 ML IV SCH (21:38)
[2022-06-27] MEDS ORDERED: PNEUMOCOCCAL POLYSACCHARIDES 25 MCG/0.5 ML VIAL/SYR IM ONE (22:34)
[2022-06-28] MEDS: LACTATED RINGER'S 1,000 ML IV SCH (05:20)
[2022-06-28 05:47] LABS: Appearance Urine Clear (Clear); Bacteria Urine Automated Negative (Negative); Bilirubin Urine Negative (Negative); Blood Urine 3+ (Negative); Color Urine Yellow; Glucose Urine UA Negative (Negative); Ketones Urine Negative (Negative); Leukocyte Esterase Urine Negative (Negative); Nitrite Urine Negative (Negative); Protein Urine Negative (Negative); Specific Gravity Urine 1.017 (1.000-1.030); Urobilinogen Urine Negative (Negative); pH Urine 5.5 (4.5-7.5)
[2022-06-28] MEDS ORDERED: INSULIN ASPART PER UNIT SC SCH (06:00)
[2022-06-28 07:21] LABS: Hematocrit (blood only) 38.8 % (40.1-51.0); Hemoglobin 13.4 g/dl (14.0-18.0); Mean Corpuscular Hemoglobin 31.9 pg (25.0-34.0); Mean Corpuscular Hgb Conc 34.5 g/dL (32.0-36.0); Mean Corpuscular Volume 92.4 fL (80.0-100.0); Mean Platelet Volume 10.2 fL (9.4-12.4); Platelet Count 123 K/uL (130-400); RDW Standard Deviation 43.9 fL (36.4-46.3); White Blood Count 7.37 K/ul (4.8-10.8)
[2022-06-28 07:26] LABS: BUN Creatinine Ratio 14.6 (10-20); C Reactive Protein 1.74 mg/dl (0-0.5); Calcium 8.3 mg/dl (8.5-10.1); Creatinine Clr Calc Pharmacy 101.2 ml/min; Potassium 3.5 mmol/L (3.5-5.1)
[2022-06-28 07:29] LABS: Basophils # (auto) 0.03 K/uL (0-0.2); Basophils % (auto) 0.4 %; Eosinophils # (auto) 0.07 K/uL (0-0.50); Eosinophils % (auto) 0.9 %; Immature Granulocytes # (auto) 0.02 K/uL (0.00-0.02); Immature Granulocytes % (auto) 0.3 %; Lymphocytes # (auto) 1.47 K/uL (1.2-3.4); Lymphocytes % (auto) 19.9 %; Monocytes % (auto) 9.5 %; Neutrophils # (auto) 5.08 K/uL (1.4-6.5)
--- NOTE | 2022-06-28 08:42 | Urology Consultation ---
Date of Consultation June 28, 2022 Assessment & Plan (1) Hydronephrosis with ureteral calculus: (2) Renal colic on right side: (3) Obstruction of right ureteropelvic junction (UPJ): Plan 56yo M admitted with intractable right flank pain secondary to a 4 mm right UPJ stone causing mild hydronephrosis. -Afebrile and hemodynamically stable. -No leukocytosis and normal renal function. -Urinalysis not indicative of infection. -Patient passed his stone this morning and is currently asymptomatic, therefore no urological intervention indicated. -Ok for discharge from perspective. -We discussed worrisome signs/symptoms. -Basic stone prevention also reviewed. -We will arrange outpatient follow-up with our service for continued care. -Urology will sign-off. Please contact us with any further questions, concerns, or changes in patient status. History of Present Illness Attending Physician: Tuan Vargas MD History of Present Illness 56-year-old male with a past medical history of dyslipidemia, prediabetes, asthma, reflux who presented with intractable pain and found to have a 4 mm obstructing stone at the right UPJ with mild right hydro. Given his persistent pain, he was recommended for admission for pain control. On arrival he was afebrile and hemodynamically stable. No leukocytosis and normal renal function. Urinalysis not suggestive of infection. He did note some dysuria at baseline due to high school trauma causing urethral scar tissue and ultimately stricture requiring surgical intervention with Urology in [place] in the 90s and [address] [facility] U[facility]. CT abdomen pelvis- 1. A 4 mm obstructing stone within the right ureteropelvic junction resulting in mild right hydronephrosis. 2. No bowel wall thickening or obstruction. 3. Normal appendix. 4. Hepatic steatosis. 5. Mild bladder wall thickening. Patient examined at bedside this AM. Awake, resting in bed on arrival. No acute distress. Upon arrival, patient noted he just passed a stone. He denies any pain or discomfort at present. No fevers or chills. No nausea or vomiting. No hematuria, some mild dysuria. Has been NPO. Other than the urethral stricture/scarring, he denies any additional urological history. Allergies Allergy/AdvReac Type Severity Reaction Status Date / Time epinephrine Allergy Unknown INCREASED Verified 06/27/22 15:52 HEART OVER 200 BPM Penicillins Allergy Unknown UNSURE OF Verified 06/27/22 15:52 REACTION Home Medications Medication Instructions Recorded Confirmed Type albuterol sulfate 90 mcg/actuation See Rx Instructions inhalation QID 05/14/21 06/27/22 Rx aerosol inhaler (Ventolin HFA) PRN shortness of breath or wheezing #8.5 grams pravastatin 40 mg tablet 40 mg PO DAILY #90 tabs 09/27/21 06/27/22 Rx metformin 1,000 mg tablet 1,000 mg PO BID #180 tabs 11/01/21 06/27/22 Rx metoprolol succinate 25 mg 25 mg PO DAILY #90 tabs 11/01/21 06/27/22 Rx tablet,extended release 24 hr montelukast 10 mg tablet 10 mg PO QPM #90 tabs 11/01/21 06/27/22 Rx tamsulosin 0.4 mg capsule 0.4 mg PO QAM 7 days #7 caps 06/28/22 Rx Patient History Medical History Dyslipidemia Prediabetes Tubular adenoma of colon Surgical History History of uvulectomy S/P cystoscopy Family History Father Prostate cancer Acute Crohn's disease Crohn's disease Son Asthma Mother Bipolar disorder Grandfather (Maternal) Coronary heart disease Grandmother (Maternal) Pancreatic cancer Denies family history of Ovarian cancer Myocardial infarction Breast cancer Colorectal cancer Social History Smoking Status: Never smoker Hx Alcohol Use: Yes Alcohol type: hard liquor Hx Substance Use: No Preferred Language: Congolese Communication Ability: Effective Visual Impairment: No Limitations Hearing Ability: Normal Lsw Required: No Beliefs That Will Affect Care: None marital status: Current Living Situation: Family current occupational status: employed current occupation: president and chief executive officer Other Information That Helps Us Care for You: No Feels Safe at Home: Yes Safety Concerns: Feels Safe At This Time Childhood Exposure to Second-Hand Smoke: No Dental Care, Regularly: Yes Physical Activity Frequency: 3-4 Times per Week Seatbelt Use: always Sunscreen Use: Yes Assistive Devices: None Assistive Devices Comment: glasses at home Review of Systems Review of Systems: All systems reviewed & are unremarkable except as noted in HPI & below Physical Exam Constitutional: well developed and well nourished; no acute distress Respiratory: normal respiratory effort; no respiratory distress and no labored breathing Musculoskeletal: Head/Neck/Chest: normocephalic Skin: No visible rashes or lesions to exposed skin areas Neurologic: moves all extremities and awake Psychiatric: A+Ox3, euthymic affect Genitourinary: no CVA tenderness Results & Data ([facility]) Vital Signs (Past 12 Hours) Vital Signs Temp Pulse Pulse Resp BP BP BP 06/28/22 07:34 36.7 C 75 18 111/72 06/27/22 21:00 06/27/22 21:00 36.7 C 68 16 137/84 06/27/22 20:51 58 L 20 132/85 06/27/22 20:46 62 16 110/76 Pulse Ox O2 Del Method 06/28/22 07:34 93 Room Air 06/27/22 21:00 Room Air 06/27/22 21:00 95 Room Air 06/27/22 20:51 97 Room Air 06/27/22 20:46 97 Room Air PG Care Time/CCT Total # of Minutes Spent Total Time Spent with Patient: Total time spent is greater than 50% in coordination of care (as documented) at patient's floor/unit and/or counseling patient: Coding Level of Care Code 25465 Inpt Consult Level 3 Diagnoses Hydronephrosis with ureteral calculus N13.2 Renal colic on right side N23 Obstruction of right ureteropelvic junction (UPJ) N13.5
[2022-06-28] MEDS ORDERED: METOPROLOL SUCC 25MG EXT REL TAB PO SCH (09:00)
[2022-06-28] MEDS ORDERED: TAMSULOSIN HCL 0.4 MG CAP PO SCH (09:00)
[2022-06-28] MEDS ORDERED: PRAVASTATIN SOD 40 MG TAB PO SCH (09:00)
--- NOTE | 2022-06-28 09:52 | Discharge Summary ---
Date of Service June 28, 2022 Admission HPI Per Admitting Provider Danny is a 56-year-old male with a past medical history of dyslipidemia, prediabetes, asthma, reflux who presents with intractable pain and is found to haveA 4 mm obstructing stone at the right UPJ with mild right hydro. Pain was not improved with saline, Zofran, morphine, hydromorphone, and has not improved with Flomax. Patient was recommended for admission for pain control, urologic intervention, and management of hydro. Creatinine is not elevated, admitting creatinine is 0.99 and baseline creatinine is normal. R flank pain started ~9am, then jumped to 10/10 and moved from R flank into the R low pelvis. No fevers, chills, sweats +diaphoresis, +Vomiting from pain, nonbloody/nonbilious emesis No chest pain. no sob, no breathing problems NO blood in urine to his knowledge. Has some dysuria at baseline due to a high school traumatic stricture x4 interventions/surgeries for scar tissue 2x performed in [place] in the , and 2x with [facility]. Medical History: Reviewed Medications: Reviewed Surgical History: Reviewed Allergies: Reviewed. PCN childhood w/ hallucinations no rash. Social History: No tobacco product use, rare social alcohol use, no MM. Code Status: Full Code Principal Diagnosis Ureterolithiasis Discharge Exam Constitutional WD/WN, vitals as above Respiratory normal respiratory effort, lungs clear to auscultation Cardiovascular RRR, no murmur, no edema Gastrointestinal (Abdomen) normal bowel sounds, soft, nontender, no hepatosplenomegaly Genitourinary no CVA tenderness Discharge Data Allergies Allergy/AdvReac Type Severity Reaction Status Date / Time epinephrine Allergy Unknown INCREASED Verified 06/27/22 15:52 HEART OVER 200 BPM Penicillins Allergy Unknown UNSURE OF Verified 06/27/22 15:52 REACTION Consultations 06/27/22 16:22 ED Decision to Admit Stat 06/27/22 21:15 Consult Urology Routine Ordered Studies 06/27/22 12:19 CT abd pelvis wo con Stat IMPRESSION: 1. A 4 mm obstructing stone within the right ureteropelvic junction resulting in mild right hydronephrosis. 2. No bowel wall thickening or obstruction. 3. Normal appendix. 4. Hepatic steatosis. 5. Mild bladder wall thickening. Hospital Course (1) Obstruction of right ureteropelvic junction (UPJ): Danny Weems is a 56 year old male admitted to [facility] from June 27 to 2021 due to right flank pain. He was diagnosed with ureterolithiasis with a 4mm stone and treated with pain medication and intravenous fluids. He passed the stone overnight and is now medically stable for discharge. Recommend continuing tamsulosin for 1 week. Use acetaminophen and ibuprofen as needed for pain. He will follow up with urology for stone analysis (pending at discharge). (2) Obstructive sleep apnea: (3) Dyslipidemia: (4) Prediabetes: (5) Asthma: (6) Esophageal reflux: Total Time Total Time Spent Total Time Spent (In Minutes): 20 Discharge Plan Discharge Items Patient Disposition: Home - Self-Care Reason For Visit: OBSTRUCTING UPJ R STONE Discharge Diagnosis: Kidney stone Activity: Resume your previous activity Non-emergency contact: Urologist Call non-emergency contact if: you have any medication questions and your symptoms worsen Follow-up/Referrals: Cheng Tracy MD [Primary Care Provider] - 07/04/22 11:30 am Don Hernandez DO [Physician] - 07/04/22 2:30 pm (follow up kidney stone) Diet: Regular Addtl Attending Provider Instructions: You were admitted to [facility] from June 27 to 2021 due to right flank pain. You were treated with pain medication and intravenous fluids. You passed a stone overnight and are now medically stable for discharge. Recommend continuing tamsulosin for 1 week. Use acetaminophen and ibuprofen as needed for pain. Pending Studies at Discharge: No Stand-Alone Forms: My [facility], Smoking Cessation Medications and DC Order Prescriptions: New tamsulosin 0.4 mg Capsule 0.4 mg PO QAM 7 Days Qty: 7 0RF Continued pravastatin 40 mg tablet 40 mg PO DAILY Qty: 90 3RF metoprolol succinate 25 mg tablet extended release 24 hr 25 mg PO DAILY Qty: 90 3RF montelukast 10 mg tablet 10 mg PO QPM Qty: 90 3RF metformin 1,000 mg tablet 1,000 mg PO BID Qty: 180 3RF albuterol sulfate [Ventolin HFA] 90 mcg/actuation HFA aerosol inhaler See Rx Instructions inhalation QID PRN (Reason: shortness of breath or wheezing) Qty: 8.5 2RF Rx Instructions: 1-2 puffs every 4-5 hours inhalation four times daily PRN; Discharge Orders: Discharge Order (Routine); Ordered 06/28/22 Ordered By: Tuan Vargas Admission Data Admit Date/Time: 06/27/22 18:29 Attending Provider: Tuan Vargas Admit Provider: Fabrice Russell Primary Care Provider: Cheng Tracy Other Providers: Fabrice Russell ; Don Hernandez Other Interventions: Discharge Summary Assessment (RN) Last Done: 06/28/22 09:59 Coding Level of Care Code D/C DAY MANAGEMENT <30 MINS Diagnoses Obstruction of right ureteropelvic junction (UPJ) N13.5 Obstructive sleep apnea G47.33 Dyslipidemia E78.5 Prediabetes R73.03 Asthma J45.909 Esophageal reflux K21.9
== END 2022-06-28 11:22 | disposition home or self-care (01) | DRG 694 ==
LOC: ED 11:09 → SUATTDRO 18:29 → 3N 18:29